=== PATIENT | female | born 1995 | race Caucasian/White ===

== ENCOUNTER 2016-12-17 20:18 | Emergency (ER) | payer OTHER ==
[2016-12-17 20:24] VITALS: RESP 16; TEMP 97.9; O2SAT 99
[2016-12-17] MEDS ORDERED: NS 1,000 ML IV ONE (22:36)
--- NOTE | 2016-12-17 22:40 | EDPHY ---
HPI/HX/ROS/PE/MDM Narrative: CHIEF COMPLAINT: Abdominal pain HISTORY OF PRESENT ILLNESS: The patient is a 21 y/o female complaining of intermittent abdominal pain for the past three weeks. She had her gallbladder removed on October 28. Three weeks ago she began experiencing abdominal pain in the right upper quadrant similar to her symptoms prior to her gallbladder removal. The pain is intermittent and is gone in the mornings and worse after work which is rather physically demanding though food doesn't improve or worsen her pain. She felt like she may have been getting a cold last week. She had indigestion yesterday. She has associated nausea. She denies vomiting, diarrhea, fever, or other associated symptoms. She denies family history of blood clots. No fever, chills, chest pain, shortness of breath, palpitations, vomiting, diarrhea, urinary complaints, headache, lightheadedness. REVIEW OF SYSTEMS: Aside from elements discussed in the HPI, a comprehensive 10-point review of systems was reviewed and is negative. PAST MEDICAL HISTORY: Gallbladder removal October 28. Of note, patient did not have gallstones but describes gallbladder dysfunction resulting in cholecystectomy. 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 HEENT: Atraumatic. Eyes: No icterus, no injection. Mouth: moist mucous membranes. No erythema or lesions. Neck: supple with no adenopathy. LUNGS: Clear to auscultation bilaterally, no wheezes, rhonchi or rales. CARDIAC: Regular rate and rhythm, no rubs, murmurs or gallops. ABDOMEN: Tenderness on the right upper quadrant and near the costal line. Soft, nondistended, bowel sounds normal. No guarding or rebound. BACK: No CVA tenderness. EXTREMITIES: No trauma. No edema. Range of motion is normal throughout. NEURO: Alert and oriented, grossly nonfocal. SKIN: Warm and dry, no rash. PSYCHIATRIC: Normal mentation, no agitation. Portions of this note were transcribed by a medical scientific liaison. I personally performed a history, physical exam, medical decision making, and confirmed accuracy of information the transcribed note. ED Course: The patient is a 21 y/o female complaining of abdominal pain. She had her gallbladder removed on October 28. Three weeks ago she began experiencing intermittent right upper quadrant abdominal pain. The pain is completely gone in the mornings but is worse after work at a rather physically demanding job. She has associated indigestion and nausea. She denies fever, headache, vomiting , diarrhea, or any other associated symptoms. Patient's evaluation included normal labs. Normal white count. Normal lipase. I believe the patient will require further investigation by Gastroenterology to possibly include HIDA scan versus ERCP given her history of gallbladder dysfunction resulting cholecystectomy. She did not have a history of gallstones. Patient is comfortable being discharged home with close follow-up Gastroenterology. She was given Toradol in the emergency department and discharged with a prepack of Percocet. She understands narcotic precautions. She looks well. MDM: Differential diagnosis for the patient's upper abdominal pain was considered including but not limited to pulmonary disease, biliary dysfunction, hepatitis, gastritis, peptic ulcers disease, and pancreatitis. - Data Points Laboratory Results: Laboratory Results 12/17/16 20:40 12/17/16 20:40 12/17/16 12/17/16 12/17/16 20:40 20:40 20:40 WBC 7.61 10^3/uL 10^3/uL (3.80-9.50) RBC 4.62 10^6/uL 10^6/uL (4.18-5.33) Hgb 12.8 g/dL g/dL (12.6-16.3) Hct 37.9 % L % (38.0-47.0) MCV 82.0 fL fL (81.5-99.8) MCH 27.7 pg L pg (27.9-34.1) MCHC 33.8 g/dL g/dL (32.4-36.7) RDW 13.6 % % (11.5-15.2) Plt Count 337 10^3/uL 10^3/uL (150-400) MPV 12.3 fL H fL (8.7-11.7) Neut % (Auto) 32.8 % L % (39.3-74.2) Lymph % (Auto) 55.2 % H % (15.0-45.0) [place] % (Auto) 8.9 % % (4.5-13.0) Eos % (Auto) 2.1 % % (0.6-7.6) Baso % (Auto) 0.7 % % (0.3-1.7) Nucleat RBC Rel Count 0.0 % % (0.0-0.2) Absolute Neuts (auto) 2.50 10^3/uL 10^3/uL (1.70-6.50) Absolute Lymphs (auto) 4.20 10^3/uL H 10^3/uL (1.00-3.00) Absolute Monos (auto) 0.68 10^3/uL 10^3/uL (0.30-0.80) Absolute Eos (auto) 0.16 10^3/uL 10^3/uL (0.03-0.40) Absolute Basos (auto) 0.05 10^3/uL 10^3/uL (0.02-0.10) Absolute Nucleated RBC 0.00 10^3/uL 10^3/uL (0-0.01) Immature Gran % 0.3 % % (0.0-1.1) Immature Gran # 0.02 10^3/uL 10^3/uL (0.00-0.10) Sodium 134 mEq/L mEq/L (134-144) Potassium 4.2 mEq/L mEq/L (3.5-5.2) Chloride 100 mEq/L mEq/L (97-110) Carbon Dioxide 26 mEq/l mEq/l (22-31) Anion Gap 8 mEq/L mEq/L (8-16) BUN 8 mg/dL mg/dL (7-23) Creatinine 0.8 mg/dL mg/dL (0.6-1.0) Estimated GFR > 60 Glucose 82 mg/dL mg/dL (70-100) Calcium 9.4 mg/dL mg/dL (8.5-10.4) Total Bilirubin 0.3 mg/dL mg/dL (0.1-1.4) Conjugated Bilirubin 0.2 mg/dL mg/dL (0.0-0.5) Unconjugated Bilirubin 0.1 mg/dL mg/dL (0.0-1.1) AST 17 IU/L IU/L (14-46) ALT 21 IU/L IU/L (9-52) Alkaline Phosphatase 39 IU/L IU/L (38-126) Total Protein 6.2 g/dL L g/dL (6.3-8.2) Albumin 3.9 g/dL g/dL (3.5-5.0) Lipase 72 IU/L IU/L (23-300) Beta HCG, Qual NEGATIVE Medications Given: Discontinued Medications Sodium Chloride (Ns) 1,000 mls @ 0 mls/hr IV ONCE ONE; Wide Open PRN Reason: Protocol Stop: 12/17/16 22:37 Last Admin: 12/17/16 22:46 Dose: 1,000 mls Ketorolac Tromethamine (Toradol) 30 mg IVP EDNOW ONE Stop: 12/17/16 23:32 Last Admin: 12/17/16 23:40 Dose: 30 mg Pantoprazole Sodium (Protonix) 40 mg PO EDNOW ONE Stop: 12/17/16 23:33 Last Admin: 12/17/16 23:39 Dose: 40 mg General Time Seen by Provider: 12/17/16 21:36 Initial Vital Signs: Initial Vital Signs Temperature (C) 36.6 C 12/17/16 20:20 Heart Rate 80 12/17/16 20:20 Respiratory Rate 16 12/17/16 20:20 Blood Pressure 109/73 12/17/16 20:20 O2 Sat (%) 99 12/17/16 20:20 O2 Delivery Mode Room Air Allergies/Adverse Reactions: No Known Allergies Allergy (Unverified 12/17/16 20:24) Home Medications: Medication Instructions Recorded Bcp 12/17/16 Omeprazole 12/17/16 Departure - Departure Disposition: Home, Routine, Self-Care Clinical Impression: Right upper quadrant pain Abdominal pain Qualifiers: Abdominal location: right upper quadrant Qualified Code(s): R10.11 - Right upper quadrant pain Condition: Good Instructions: Gastritis (ED), Biliary Colic (ED), Abdominal Pain (ED) Additional Instructions: The exact cause of your abdominal discomfort has not been identified. However, your blood work looks normal. There are no signs of acute pancreatitis. You been referred to follow up with a seo assistant. Please call Dr. Vazquez in his office in the morning. Advise that you were in the emergency department and that the emergency physician wants you to be seen within the next 2-3 days. I recommend that you begin taking omeprazole. It is available over-the- counter. It will help treat any gastritis or reflux symptoms. You been given a prescription for Percocet. You may take this as needed for very severe pain. Please be aware that it has severe abuse potentials. For [id number] pain, recommend Tylenol or ibuprofen Adult Pain & Fever Control: We recommend Acetaminophen (Tylenol) for pain and fever control. Your dose is: Acetaminophen 650-1000 mg every 4 to 6 hours Note: do not take Acetaminophen with Hydrocodone (Vicodin, Lortab) or Oycodone (Percocet). These medications also contain Acetaminophen. No more than 3000mg of Acetaminophen should be taken in 24 hours (for an adult). If you develop a fever, vomiting, worsening pain despite the above measures, cough, shortness of breath, or other concerns, please return to the emergency department. Referrals: Delmy Gallo MD [Medical Doctor] - 2-3 days, if not improved (Dr. Gallo is a primary care physician. Please contact her office to establish care.) Nic Vazquez [place] [place] - 1-2 days without fail (Dr. Vazquez is a seo assistant, please follow up with him as soon as possible. Call the office tomorrow and let them know your were referred to him from the emergency department.) Report Scribed for: Chloe Lion Report Scribed by: Jaci Barkley Date of Report: 12/17/16 Time of Report: 22:42
[2016-12-17 22:42] LABS: % IMMATURE GRANULYOCYTES 0.3 % (0.0-1.1); ABSOLUTE IMMATURE GRANULOCYTES 0.02 10^3/uL (0.00-0.10); ADD DIFF? NO; ADD MORPH? NO; ADD SCAN? NO; ATYPICAL LYMPHOCYTE FLAG 0 (0-99); FRAGMENT RBC FLAG 0 (0-99); HEMATOCRIT 37.9 % (38.0-47.0); HEMOGLOBIN 12.8 g/dL (12.6-16.3); LEFT SHIFT FLG 0 (0-99); LIPEMIA HEMOLYSIS FLAG 90 (0-99); MEAN CELL HEMOGLOBIN 27.7 pg (27.9-34.1); MEAN CELL HEMOGLOBIN CONCENTR. 33.8 g/dL (32.4-36.7); MEAN PLATELET VOLUME 12.3 fL (8.7-11.7); PLATELET CLUMPS FLAG 0 (0-99); PLATELET COUNT 337 10^3/uL (150-400); RED BLOOD CELL COUNT 4.62 10^6/uL (4.18-5.33); RED CELL DISTRIBUTION WIDTH 13.6 % (11.5-15.2)
[2016-12-17 22:47] LABS: ALANINE AMINOTRANSFERASE 21 IU/L (9-52); ALBUMIN 3.9 g/dL (3.5-5.0); ALKALINE PHOSPHATASE 39 IU/L (38-126); ANION GAP 8 mEq/L (8-16); ASPARTATE AMINOTRANSFERASE 17 IU/L (14-46); BILIRUBIN,TOTAL 0.3 mg/dL (0.1-1.4); BILIRUBIN-CONJUGATED 0.2 mg/dL (0.0-0.5); BILIRUBIN-UNCONJUGATED 0.1 mg/dL (0.0-1.1); CALCIUM 9.4 mg/dL (8.5-10.4); CARBON DIOXIDE 26 mEq/l (22-31); CHLORIDE 100 mEq/L (97-110); CREATININE 0.8 mg/dL (0.6-1.0); GLOMERULAR FILTRATION RATE > 60; GLUCOSE 82 mg/dL (70-100); POTASSIUM 4.2 mEq/L (3.5-5.2); SODIUM 134 mEq/L (134-144); TOTAL PROTEIN 6.2 g/dL (6.3-8.2)
[2016-12-17] MEDS ORDERED: KETOROLAC 30 MG/1 ML SDV IVP ONE (23:31)
[2016-12-17] MEDS ORDERED: PANTOPRAZOLE SODIUM 40 MG TAB PO ONE (23:32)
[2016-12-18 00:06] VITALS: BP 125/53; PULSE 53
== END 2016-12-18 00:03 | disposition home or self-care (01) ==
DX: R10.11 Right upper quadrant pain (principal); E86.9 Volume depletion, unspecified; Z90.49 Acquired absence of other specified parts of digestive tract
CPT/HCPCS: 96374; J1885

== ENCOUNTER 2016-12-23 15:12 | Emergency (ER) | payer OTHER ==
[2016-12-23 15:21] VITALS: TEMP 98.6
--- NOTE | 2016-12-23 17:59 | EDPHY ---
H & P Time Seen by Provider: 12/23/16 17:15 HPI/ROS: CHIEF COMPLAINT: Nausea, vomiting, diarrhea HISTORY OF PRESENT ILLNESS: Patient is a 21-year-old female who presents emergency department with nausea, vomiting, diarrhea and "heartburn. "Patient states that she had her gallbladder removed 2 months ago. She was seen in the emergency department on 12/17/2016 for similar symptoms to her gallbladder removal. During that visit she had right upper quadrant pain with nausea the end vomiting. Her symptoms had resolved but she developed nausea and vomiting again today. She has had 4 episodes of nonbloody emesis. She had appointment with Dr. Vazquez. She vomited while in his office. She was sent from his office to the emergency department. Patient denies shortness of breath. No fevers or chills REVIEW OF SYSTEMS: My complete review of systems is negative except as mentioned in the HPI. Past Medical/Surgical History: Includes GERD Past surgical history: Cholecystectomy Social history: The patient does not smoke Smoking Status: Never smoked Physical Exam: Vitals noted. 37. GENERAL: Well-appearing, in no acute distress, alert. HEENT: Eyes normal to inspection, normal pharynx, no signs of dehydration. NECK: No thyromegaly, no lymphadenopathy, supple. RESPIRATORY: Clear to auscultation bilaterally, no rales, rhonchi or wheezing. CVS: Regular rate and rhythm, no rubs, murmurs, or gallops. ABDOMEN: Soft, nontender, nondistended, no organomegaly. Benign BACK: Normal to inspection, no CVA tenderness. SKIN: Normal color, no rash, warm, dry. No pallor. EXTREMITIES: No pedal edema, no calf tenderness, no Homans sign or cords, no joint swelling. NEURO/PSYCH: Alert and oriented x3, normal mood and affect, normal motor sensory exam. Constitutional: Initial Vital Signs Temperature (C) 37 C 12/23/16 15:19 Heart Rate 65 12/23/16 15:19 Respiratory Rate 16 12/23/16 15:19 Blood Pressure 127/63 H 12/23/16 15:19 O2 Sat (%) 97 12/23/16 15:19 O2 Delivery Mode Room Air Allergies/Adverse Reactions: No Known Allergies Allergy (Verified 12/23/16 15:18) Home Medications: Medication Instructions Recorded Bcp 12/17/16 Omeprazole 12/17/16 Ondansetron Odt [Zofran Odt 4 mg 4 mg PO Q4PRN PRN #7 tab 12/23/16 (*)] Medical Decision Making - Diagnostics Imaging Results: Imaging Impressions Abdomen Ultrasound 12/23/16 18:57 Impression: Normal right upper quadrant ultrasound status post cholecystectomy. Dr. Carpenter discussed these findings by telephone with PERLITA RAHMAN on at 20:45. ED Course/Re-evaluation: In the emergency department I discussed possible etiologies with the patient. I answered all her questions. I reviewed the patient's medical record from . Laboratory studies and EKG were ordered. The patient was given a GI cocktail and Pepcid. She was given Zofran 4 mg IV for nausea and normal saline 1 L IV for hydration. [place] [id number]. The patient's chemistry panel and LFTs were normal. On recheck patient states she is feeling much better. She has no abdominal pain at this time. Patient's abdomen soft, nontender nondistended. Patient states that when she saw Dr. Vazquez today and he recommended she come to the emergency department for an ultrasound of her right upper quadrant. This was added. Ultrasound right upper quadrant: Please refer the dictated report. No acute disease noted. 2054: I discussed the result with the patient. I answered all her questions. She was feeling better. She will again follow up with Dr. Vazquez. She is given warnings prior to leaving. Differential Diagnosis: My differential includes but is not limited to reflux, esophagitis, pericarditis , myocarditis, pancreatitis, cholangitis, retained stone - Data Points Laboratory Results: Laboratory Results 12/23/16 17:30 12/23/16 17:30 12/23/16 12/23/16 12/23/16 17:30 17:30 17:30 WBC RBC Hgb Hct MCV MCH MCHC RDW Plt Count MPV Neut % (Auto) Lymph % (Auto) [place] % (Auto) Eos % (Auto) Baso % (Auto) Nucleat RBC Rel Count Absolute Neuts (auto) Absolute Lymphs (auto) Absolute Monos (auto) Absolute Eos (auto) Absolute Basos (auto) Absolute Nucleated RBC Immature Gran % Immature Gran # Sodium 139 mEq/L mEq/L (134-144) Potassium 4.0 mEq/L mEq/L (3.5-5.2) Chloride 98 mEq/L mEq/L (97-110) Carbon Dioxide 23 mEq/l mEq/l (22-31) Anion Gap 18 mEq/L H mEq/L (8-16) BUN 9 mg/dL mg/dL (7-23) Creatinine 0.7 mg/dL mg/dL (0.6-1.0) Estimated GFR > 60 Glucose 85 mg/dL mg/dL (70-100) Calcium 10.1 mg/dL mg/dL (8.5-10.4) Total Bilirubin 0.6 mg/dL mg/dL (0.1-1.4) Conjugated Bilirubin 0.2 mg/dL mg/dL (0.0-0.5) Unconjugated Bilirubin 0.4 mg/dL mg/dL (0.0-1.1) AST 30 IU/L IU/L (14-46) ALT 27 IU/L IU/L (9-52) Alkaline Phosphatase 55 IU/L IU/L (38-126) Total Protein 7.5 g/dL g/dL (6.3-8.2) Albumin 4.6 g/dL g/dL (3.5-5.0) Lipase 39 IU/L IU/L (23-300) Beta HCG, Qual NEGATIVE Urine Color COLORLESS Urine Appearance CLEAR Urine pH 7.0 (5.0-7.5) Ur Specific [place] 1.001 L (1.002-1.030) Urine Protein NEGATIVE (NEGATIVE) Urine Ketones NEGATIVE (NEGATIVE) Urine Blood NEGATIVE (NEGATIVE) Urine Nitrate NEGATIVE (NEGATIVE) Urine Bilirubin NEGATIVE (NEGATIVE) Urine Urobilinogen NEGATIVE EU EU (0.2-1.0) Ur Leukocyte Esterase NEGATIVE (NEGATIVE) Urine Glucose NEGATIVE (NEGATIVE) 12/23/16 17:30 WBC 14.09 10^3/uL H 10^3/uL (3.80-9.50) RBC 5.17 10^6/uL 10^6/uL (4.18-5.33) Hgb 14.1 g/dL g/dL (12.6-16.3) Hct 41.5 % % (38.0-47.0) MCV 80.3 fL L fL (81.5-99.8) MCH 27.3 pg L pg (27.9-34.1) MCHC 34.0 g/dL g/dL (32.4-36.7) RDW 13.3 % % (11.5-15.2) Plt Count 361 10^3/uL 10^3/uL (150-400) MPV 11.8 fL H fL (8.7-11.7) Neut % (Auto) 68.5 % % (39.3-74.2) Lymph % (Auto) 25.4 % % (15.0-45.0) [place] % (Auto) 4.8 % % (4.5-13.0) Eos % (Auto) 0.4 % L % (0.6-7.6) Baso % (Auto) 0.5 % % (0.3-1.7) Nucleat RBC Rel Count 0.0 % % (0.0-0.2) Absolute Neuts (auto) 9.67 10^3/uL H 10^3/uL (1.70-6.50) Absolute Lymphs (auto) 3.58 10^3/uL H 10^3/uL (1.00-3.00) Absolute Monos (auto) 0.67 10^3/uL 10^3/uL (0.30-0.80) Absolute Eos (auto) 0.05 10^3/uL 10^3/uL (0.03-0.40) Absolute Basos (auto) 0.07 10^3/uL 10^3/uL (0.02-0.10) Absolute Nucleated RBC 0.00 10^3/uL 10^3/uL (0-0.01) Immature Gran % 0.4 % % (0.0-1.1) Immature Gran # 0.05 10^3/uL 10^3/uL (0.00-0.10) Sodium Potassium Chloride Carbon Dioxide Anion Gap BUN Creatinine Estimated GFR Glucose Calcium Total Bilirubin Conjugated Bilirubin Unconjugated Bilirubin AST ALT Alkaline Phosphatase Total Protein Albumin Lipase Beta HCG, Qual Urine Color Urine Appearance Urine pH Ur Specific [place] Urine Protein Urine Ketones Urine Blood Urine Nitrate Urine Bilirubin Urine Urobilinogen Ur Leukocyte Esterase Urine Glucose Medications Given: Discontinued Medications Al Hydroxide/Mg Hydroxide (Maalox Susp) 30 ml PO ONCE ONE Stop: 12/23/16 18:02 Last Admin: 12/23/16 18:08 Dose: 30 ml Hyoscyamine Sulfate (Levsin, Hyomax-Sl) 0.25 mg PO ONCE ONE Stop: 12/23/16 18:02 Last Admin: 12/23/16 18:08 Dose: 0.25 mg Sodium Chloride (Ns) 1,000 mls @ 0 mls/hr IV EDNOW ONE; Wide Open PRN Reason: Protocol Stop: 12/23/16 18:02 Last Admin: 12/23/16 18:09 Dose: 1,000 mls Famotidine/Sodium Chloride (Pepcid 20 Mg (Premix)) 50 mls @ 200 mls/hr IV EDNOW ONE Stop: 12/23/16 18:15 Last Admin: 12/23/16 18:08 Dose: 50 mls Lidocaine (Lidocaine 2% Viscous) 15 ml PO ONCE ONE Stop: 12/23/16 18:02 Last Admin: 12/23/16 18:08 Dose: 15 ml Ondansetron HCl (Zofran) 4 mg IVP EDNOW ONE Stop: 12/23/16 18:02 Last Admin: 12/23/16 18:08 Dose: 4 mg Departure - Departure Disposition: Home, Routine, Self-Care Clinical Impression: Nausea Chest pain Qualifiers: Chest pain type: other chest pain Qualified Code(s): R07.89 - Other chest pain Condition: Good Instructions: Abdominal Pain (ED), Gastroesophageal Reflux Disease (ED), Acute Nausea and Vomiting (ED) Additional Instructions: Your ultrasound was normal. Need close follow-up with Dr. Vazquez. Return with increasing pain, repeated vomiting, fever or any other concerns. Referrals: HUBERT MCGILL [Other] - 1-2 days without fail Nic Vazquez MD [[facility] [place] Primary Care Provider] - 5-7 days, call for appt. Prescriptions: Ondansetron Odt [Zofran Odt 4 mg (*)] 4 mg PO Q4PRN PRN #7 tab PRN Reason: For Nausea & Vomiting
[2016-12-23] MEDS ORDERED: NS 1,000 ML IV ONE (18:01)
[2016-12-23] MEDS ORDERED: LIDOCAINE 2% VISCOUS 15 ML UDCUP PO ONE (18:01)
[2016-12-23] MEDS ORDERED: ONDANSETRON 4 MG/2 ML VIAL IVP ONE (18:01)
[2016-12-23] MEDS ORDERED: HYOSCYAMINE SULFATE 0.125 MG TAB PO ONE (18:01)
[2016-12-23] MEDS ORDERED: MAG HYDROX/AL HYDROX/SIMETH 30 ML UDCUP PO ONE (18:01)
[2016-12-23] MEDS ORDERED: FAMOTIDINE 20 MG/NACL 50 ML IV ONE (18:01)
[2016-12-23 18:08] LABS: % IMMATURE GRANULYOCYTES 0.4 % (0.0-1.1); ABSOLUTE IMMATURE GRANULOCYTES 0.05 10^3/uL (0.00-0.10); ADD DIFF? NO; ADD MORPH? NO; ADD SCAN? NO; ATYPICAL LYMPHOCYTE FLAG 0 (0-99); FRAGMENT RBC FLAG 0 (0-99); HEMATOCRIT 41.5 % (38.0-47.0); HEMOGLOBIN 14.1 g/dL (12.6-16.3); LEFT SHIFT FLG 0 (0-99); LIPEMIA HEMOLYSIS FLAG 90 (0-99); MEAN CELL HEMOGLOBIN 27.3 pg (27.9-34.1); MEAN CELL VOLUME 80.3 fL (81.5-99.8); MEAN PLATELET VOLUME 11.8 fL (8.7-11.7); PLATELET CLUMPS FLAG 0 (0-99); PLATELET COUNT 361 10^3/uL (150-400); RED BLOOD CELL COUNT 5.17 10^6/uL (4.18-5.33); RED CELL DISTRIBUTION WIDTH 13.3 % (11.5-15.2)
[2016-12-23 18:26] LABS: COLOR COLORLESS; LEUKOCYTE ESTERASE,URINE NEGATIVE (NEGATIVE); NITRITE,URINE NEGATIVE (NEGATIVE)
[2016-12-23 18:30] LABS: ALANINE AMINOTRANSFERASE 27 IU/L (9-52); ALBUMIN 4.6 g/dL (3.5-5.0); ALKALINE PHOSPHATASE 55 IU/L (38-126); ANION GAP 18 mEq/L (8-16); ASPARTATE AMINOTRANSFERASE 30 IU/L (14-46); BILIRUBIN,TOTAL 0.6 mg/dL (0.1-1.4); BILIRUBIN-CONJUGATED 0.2 mg/dL (0.0-0.5); BILIRUBIN-UNCONJUGATED 0.4 mg/dL (0.0-1.1); CALCIUM 10.1 mg/dL (8.5-10.4); CARBON DIOXIDE 23 mEq/l (22-31); CHLORIDE 98 mEq/L (97-110); CREATININE 0.7 mg/dL (0.6-1.0); GLOMERULAR FILTRATION RATE > 60; GLUCOSE 85 mg/dL (70-100); SODIUM 139 mEq/L (134-144); TOTAL PROTEIN 7.5 g/dL (6.3-8.2)
[2016-12-23] MEDS ORDERED: ONDANSETRON 4MG PREPACK#2 BTL TAKEHOME ONE (20:58)
[2016-12-23 21:19] VITALS: BP 123/84; PULSE 53; RESP 14; O2SAT 97
== END 2016-12-23 21:18 | disposition home or self-care (01) ==
PROC: 3E0337Z Introduction of Electrolytic and Water Balance Substance into Peripheral Vein, Percutaneous Approach (ICD-10-PCS; principal; 2016-12-23)
DX: R11.0 Nausea (principal); R07.89 Other chest pain; E86.9 Volume depletion, unspecified
CPT/HCPCS: 96365; J2405